=== PATIENT | male | born 1990 | race Caucasian/White ===

== ENCOUNTER 2020-07-07 12:04 | Outpatient (RCR) | payer OTHER, SELFPAY ==
[2016-01-29 18:23] VITALS: BMI 28.6
== END 2020-09-07 23:59 ==
LOC: IMMUN 12:04
PROVIDERS: PCP Internal Medicine; Referring Provider Family Medicine; Visit Provider Family Medicine
DX: Z23 Encounter for immunization (principal)
CPT/HCPCS: 0001A; 0002A; 91300

== ENCOUNTER 2023-03-01 13:19 | Observation (INO) | payer OTHER, SELFPAY ==
[2023-03-01] VITALS (7 sets, daily range): BP systolic 138–160; BP diastolic 88–106; PULSE 56–78; RESP 16–18; TEMP 36.2–37.1; O2SAT 94–100; BMI 30.2; BMI 31.1
--- NOTE | 2023-03-01 13:31 | CT_ITS ---
STUDY: CT ABDOMEN AND PELVIS WITH CONTRAST REASON FOR EXAM: Male, 32 years old. RLQ abd pain RADIATION DOSAGE (If Supplied By Facility): CTDIvol = ( 13.11 ) mGy, DLP = ( 576.74 ) mGycm TECHNIQUE: Transaxial images were obtained from the dome of the diaphragm to the symphysis pubis without oral contrast. IV 100mL Isovue-370 was administered. Sagittal and coronal images were reconstructed. Individualized dose optimization techniques were used for this CT. COMPARISON: None. FINDINGS: Mild degree of dependent bibasilar atelectasis. The visualized portions of the heart are within normal limits. Normal liver. Normal gallbladder and extrahepatic biliary system. Normal spleen. Normal pancreas. Normal bilateral adrenal glands. Normal right kidney. 2 mm nonobstructive calculus is seen in the lower pole calyx of the left kidney. There is a small hiatal hernia. Normal small intestine. Normal colon. There is a tubular, thick-walled appendix (>7mm), consistent with acute appendicitis. Inflammatory changes are seen in the right lower quadrant. Mesenteric lymph nodes are seen in the right lower quadrant. Normal abdominal aorta. Normal inferior vena cava. Normal retroperitoneum. Normal urinary bladder. Normal abdominal wall. Normal osseous structures. CT/Abdomen/Pelvis W IV Cont ONLY IMPRESSION: Findings in keeping with the acute appendicitis with inflammatory changes surrounding the appendix. N.B. : The above Results were Read Back by Nash Collins MD to Devin Raines MD, and understanding confirmed on 03/01/2023 14:52:23 (ET). Electronically Signed: Nash Collins MD at 14:53 EST ,
--- NOTE | 2023-03-01 13:32 | ED.VIS.GI ---
HPI HPI - GI History of Present Illness Chief Complaint: Abd Pain Detail of Chief Complaint: Right lower quadrant abdominal pain. Informant: patient Abdominal Pain/Flank Pain Onset: Today and Yesterday Context: Gradual Onset Timing: Continuous Quality: Aching Location: RLQ Current Severity: Moderate Maximum Severity: Moderate Worsened by: Car ride Relieved by: Nothing Nausea/Vomiting/Emesis GI Symptom: Negative for Nausea or Vomiting Diarrhea/Melena/Hematochezia GI Symptom: Negative for Diarrhea, Melena or Hematochezia Associated Symptoms Associated Symptoms: Negative for Dysuria, Frequency, Hematuria or Urgency Narrative Narrative: 32-year-old healthy male no significant past medical history or prior abdominal surgeries. Since last night around 630 he developed gradual onset of worsening right lower quadrant abdominal pain. Worse when you push on it. Denies fever. Denies nausea or vomiting. Denies chills. No dysuria. No prior history. Denies abdominal trauma. Prior similar symptoms: No Recent Illness/Hospitalization: No PFSH PFSH Medical History no medical history no medical history Home Medications No Known/Unobtainable [No Known Home Medications] 01/29/16 [History Last Taken Unknown] Allergy/AdvReac Type Severity Reaction Status Date / Time No Known Allergies Allergy Verified 03/01/23 13:19 Surgical History no surgical history no surgical history Social History Smoking Status: Never smoker ROS ROS ED ROS Narrative Right lower quadrant abdominal pain. Review of Systems ROS Unobtainable: Denies due to encephalopathy Constitutional Constitutional ED: Denies chills or fever(s) ENT ENT ED: Denies ear pain Cardiovascular Cardiovascular: Denies chest pain Respiratory/Chest Respiratory/Chest: Denies cough, dyspnea or dyspnea on exertion Gastrointestinal Gastrointestinal: Reports abdominal pain; Denies constipation, diarrhea, melena, nausea or vomiting Genitourinary Genitourinary ED: Denies dysuria or hematuria Musculoskeletal Musculoskeletal: Denies arthralgias or back pain Integumentary Denies abscess Neurologic Neurologic: Denies headache(s) Psychiatric Psychiatric: Denies anxiety Endocrine Endocrinology: Denies polydipsia Hematologic/Lymphatic Hematologic/Lymphatic: Denies easy bleeding Allergic/Immunologic Allergic/Immunologic ED: Denies mouth swelling, tongue swelling or urticaria EXAM Physical Exam Narrative Exam Narrative: 32-year-old male vital signs stable afebrile. No acute distress. H EENT exam unremarkable. Lungs clear to auscultation bilaterally. Heart regular rhythm rate about 80 no murmur. Chest wall nontender. Abdomen soft, nondistended normal bowel sounds. No hernia or mass. He is only tender in the right lower quadrant. Is exquisitely tender to palpation. The upper quadrant and left side of his abdomen is completely nontender. No distention. No hernia or mass. Back nontender. Moving all 4 extremities. Neurologically is awake and alert with no focal motor deficits. Const Vital Signs: 03/01/23 13:20 Temperature 98.8 F Temperature Source Temporal Pulse Rate 78 Respiratory Rate 18 Blood Pressure 138/93 H Blood Pressure Mean 108 Pulse Ox 100 Oxygen Delivery Method Room Air Positive well nourished and well developed; Negative for obese, cachectic or contractures General Appearance ED: well developed and NAD; Negative for cachectic, contractures or pallor Nutritional Appearance: Negative for cachectic or obese HEENT Reports moist mucous membranes normocephalic and atraumatic; Negative for trauma or tenderness Eyes PERRL and EOMs intact bilaterally General Eye ED: Negative for pale conjunctiva or scleral icterus Neck no lymphadenopathy, supple and no JVD General: Negative for tenderness Carotids: Negative for other Lymph Lymphatic: Negative for other Resp normal respiratory effort and clear to auscultation bilaterally Effort and Inspection: Negative for respiratory distress Auscultation: Negative for rales, rhonchi or wheezes Cardio regular rate, regular rhythm, S1 normal heart sound, S2 normal heart sound and no murmurs Rate: Negative for bradycardia or tachycardic Rhythm: Negative for abnormal rhythm GI non-distended and no masses; Negative for non-tender Inspection: Negative for abdominal distention Auscultation: normoactive bowel sounds Palpation: soft, tender, guarding and rebound tenderness present; Negative for rigid, hepatomegaly, splenomegaly, hernia, mass or pulsatile mass Back/Spine no CVA tenderness General Back: Negative for CVA tenderness Cervical Spine: Negative for cervical spine tenderness Thoracic Spine / Upper Back: Negative for thoracic spinal tenderness Lumbar Spine / Lower Back: Negative for lumbar spinal tenderness Coccyx: Negative for other Extremity full ROM General Extremety ED: Negative for edema or tenderness General Extremity: Negative for edema Neuro CN's II-XII intact bilaterally and moves all extremities Sensorium / Orientation: alert, oriented to person, oriented to place and oriented to time; Negative for orientation impaired, confused, lethargic or stuporous Motor Exam: strength 5/5 throughout Psych mental status grossly normal and thought process normal Appearance: Negative for other Attitude: No agitated Mood & Affect: Negative for depressed, anxious or tearful Skin no wounds General Skin Exam: Negative for jaundice or pallor Lesions: no lesions Rashes: no rashes Trauma: Negative for abrasion Nails: Negative for discolored MDM MDM MDM Narrative Medical decision making narrative: Healthy 32-year-old male with right lower quadrant abdominal pain. Exam is consistent with acute appendicitis. CAT scan and labs are pending. Currently he does not want anything for pain and denies any nausea. Repeat exam patient is doing well at 2:23 PM. No change in his abdominal exam. Clinically and by CAT scan this is acute appendicitis. IV Zosyn has been ordered. Dental surgery Dr. Leonard De Guzman is on page. Discussed the diagnosis with the patient and his via phone. Dr. De Guzman is aware we discussed the case and when he is finished with patients in his office will be in evaluate the patient taken to the OR. Patient's last meal was breakfast this morning. History & Record Review Discussion w/independent historian: Patient Lab Data Attestation: I reviewed the patient's lab results. Lab results narrative: White count 12.4. H&H 13 and 42. Platelets 288. CAT scan abdomen pelvis IV contrast I believe her to be acute appendicitis. Awaiting formal radiology interpretation. Labs: Laboratory Results - last 24 hr 03/01/23 13:59 WBC 12.4 H RBC 5.12 Hgb 13.4 Hct 42.1 MCV 82.2 MCH 26.2 L MCHC 31.8 L RDW Std Deviation 40.4 RDW Coeff of Emma 13.5 Plt Count 288 MPV 8.6 Immature Gran % (Auto) 0.300 Neut % (Auto) 71.7 H Lymph % (Auto) 16.4 L Eaton % (Auto) 9.2 Eos % (Auto) 1.8 Baso % (Auto) 0.6 Absolute Neuts (auto) 8.9 H Absolute Lymphs (auto) 2.03 Nucleated RBC % 0 Discharge Plan Triage Chief Complaint: Abd Pain ED Provider: Devin Raines Dx/Rx/DC Orders Clinical Impression: Abdominal pain, Acute appendicitis Prescriptions: No Action No Known Home Medications Primary Care Provider: Erwin Vidales Referrals: Erwin Vidales MD [Primary Care Provider] - Disposition Disposition: Acute Care Hospital [facility]
[2023-03-01 14:07] LABS: Absolute Lymphocyte Count 2.03 X10^3/uL (0.83-4.51); Absolute Neutrophil Count 8.9 X10^3/uL (2.0-7.7); Basophil# 0.07 X10^3/uL; Basophil% 0.6 % (0-1); Eosinophil# 0.22 X10^3/uL; Eosinophils% 1.8 % (0-5); Hematocrit 42.1 % (40-54); Hemoglobin 13.4 g/dL (13.0-16.5); Lymphocyte # 2.03 X10^3/ul (0.83-4.51); Lymphocyte % 16.4 % (19-41); Mean Corp Hgb Conc 31.8 g/dL (32-36); Mean Corpuscular Hgb 26.2 pg (27.0-32.0); Mean Corpuscular Volume 82.2 fL (80-94); Mean Platelet Vol. 8.6 fl (6.2-12.0); Monocyte# 1.14 X10^3/uL; Monocyte% 9.2 % (0-10); NRBC Flagged by Analyzer 0 % (0-5); Neutrophil # 8.85 X10^3/uL (2.7-7.7); Neutrophil % 71.7 % (47-70); Platelet Count 288 K/mm3 (150-450); RBC Distribution Width CV 13.5 % (11.6-14.6); RBC Distribution Width SD 40.4 fl (35.1-43.9); Red Blood Count 5.12 M/mm3 (4.6-6.2); White Blood Count 12.4 K/mm3 (4.4-11.0)
[2023-03-01 14:25] LABS: Anion Gap 3 (5-15); BUN 11 mg/dL (7-18); BUN/Creat Ratio 11.8 RATIO (10-20); Calcium,Total 9.1 mg/dL (8.5-10.1); Chloride 105 mmol/L (98-107); Creatinine, Serum 0.93 mg/dL (0.70-1.30); EST Glomerular Filtration Rate 99 mL/min (>60); Est Glom Filt Rate - Afr Amer 119 mL/min (>60); Estimated Creatinine Clearance 127.68 ml/min; Glucose 105 mg/dL (74-106); Potassium 3.7 mmol/L (3.5-5.1); Sodium Level 138 mmol/L (136-145)
--- NOTE | 2023-03-01 14:38 | NURSING ---
MED SURG OBS BORTZ APPENDICITIS
[2023-03-01] MEDS: HYDROmorphone 1 MG/ML Syringe IV (15:03)
[2023-03-01] MEDS: Ondansetron 4 MG/2 ML Vial IV (15:03)
[2023-03-01] MEDS: Piperacil/Tazobactam 4.5 GM in 0.9% Normal Saline (100mL MB+) 100 ML IV (15:04)
--- NOTE | 2023-03-01 18:02 | HP.PCM_ITS ---
HPI - General General Date of Service: 03/01/23 Chief Complaint: Acute onset right lower quadrant abdominal pain HPI Narrative CLINT MAHONEY, is a 32, otherwise healthy, M who presents to [facility] with complaints of progressive, acute?onset right lower quadrant abdominal pain that began approximately 1830 yesterday. He states that the pain is largely non-? migratory and describes it initially as a muscle cramp. He denies any associated nausea or vomiting. He has not experienced any change to his bowel habits. ED workup revealed mild leukocytosis at 12.[address] imaging of the abdomen pelvis was consistent with acute uncomplicated appendicitis. Patient's only prior procedural history consist of wisdom tooth extraction. [facility] Medical History no medical history Home Medications No Known/Unobtainable [No Known Home Medications] 01/29/16 [History Last Taken Unknown] Allergy/AdvReac Type Severity Reaction Status Date / Time No Known Allergies Allergy Verified 03/01/23 13:19 Surgical History no surgical history Social History Smoking Status: Never smoker ROS Constitutional Constitutional: Denies anorexia, change in weight or fever(s) Gastrointestinal Gastrointestinal: Reports abdominal pain; Denies constipation, diarrhea, nausea or vomiting Genitourinary Genitourinary: Denies dysuria Vital Signs Vital Signs Vital Signs: 03/01/23 13:20 03/01/23 17:02 03/01/23 15:19 Temperature 98.8 F Temperature Source Temporal Pulse Rate 78 71 72 Respiratory Rate 18 16 16 Blood Pressure 138/93 H 149/88 H 149/88 H Blood Pressure Mean 108 108 108 Blood Pressure Source Monitor Pulse Ox 100 98 97 Oxygen Delivery Method Room Air Room Air Room Air Weight Weight: 229 lb 1.6 oz Body Mass Index (BMI) 30.2 Physical Exam Const alert, oriented x3, no apparent distress and well nourished Resp normal respiratory effort GI GI Narrative: Hirsute, no scars, no visible herniation. Focal tenderness over McBurney's point. Negative Rovsing's, negative obturator sign. Positive psoas sign Results Lab / Micro Data 03/01/23 13:59 03/01/23 13:59 Labs: Laboratory Results - last 24 hr 03/01/23 13:59: WBC 12.4 H, RBC 5.12, Hgb 13.4, Hct 42.1, MCV 82.2, MCH 26.2 L, MCHC 31.8 L, RDW Std Deviation 40.4, RDW Coeff of Emma 13.5, Plt Count 288, MPV 8.6, Immature Gran % (Auto) 0.300, Neut % (Auto) 71.7 H, Lymph % (Auto) 16.4 L, Mchenry % (Auto) 9.2, Eos % (Auto) 1.8, Baso % (Auto) 0.6, Absolute Neuts (auto) 8.9 H, Absolute Lymphs (auto) 2.03, Nucleated RBC % 0, Sodium 138, Potassium 3.7, Chloride 105, Carbon Dioxide 30.0, Anion Gap 3 L, BUN 11, Creatinine 0.93, Estim Creat Clear Calc 127.68, Est GFR (MDRD) Af Amer 119, Est GFR (MDRD) Non-Af 99, BUN/Creatinine Ratio 11.8, Glucose 105, Calcium 9.1 Imagaing Radiology Impression Abdomen/Pelvis CT 03/01/23 13:31 IMPRESSION: Findings in keeping with the acute appendicitis with inflammatory changes surrounding the appendix. N.B. : The above Results were Read Back by Nash Collins MD to Devin Raines MD, and understanding confirmed on 03/01/2023 14:52:23 (ET). Electronically Signed: Nash Collins MD at 14:53 EST , ADDENDUM: 03/01/23 1500 IMPRESSION: Findings in keeping with the acute appendicitis with inflammatory changes surrounding the appendix. N.B. : The above Results were Read Back by Nash Collins MD to Devin Raines MD, and understanding confirmed on 03/01/2023 14:52:23 (ET). Electronically Signed: Nash Collins MD at 14:53 EST , Assessment & Plan Assessment/Plan (1) Acute appendicitis: PLAN: This is a 32-year-old, otherwise healthy male, who presents with signs and symptoms consistent with acute appendicitis. Management was discussed with patient and surgical appendectomy was recommended. Procedure details were discussed to include the possibility of outpatient disposition, however, I cautioned that given the late hour it may be best to proceed with an observational stay to further monitor patient and establish adequate pain control. He shares that while he is a new father as of this week, he is willing to proceed as recommended. He also provides his verbal consent to proceed as recommended regarding the operation. Emergency medicine has already dosed patient with piperacillin/tazobactam. Will proceed emergently for laparoscopic appendectomy at first availability of the operating room. Charges/Coding Visit Charges Inpatient E&M: 54358 Init Hosp L2
--- NOTE | 2023-03-01 18:15 | APP_PTH ---
PATIENT: CILNT MAHONEY LOC: MS3 U#:[id number] AGE/SX: 32/M ROOM: DC312 RE03/01/[address]: Dr. Leonard De Guzman MD : 1990 BED: 1 DIS: 03/02/2023 SPEC #: [id number] RECD: 03/02/23 08:20 STATUS: [place] #: [id number] TOM: 03/01/23 18:[address]: Leonard De Guzman DEPT: SURGICAL PATHOLOGY RECD BY: Piedad Mcgee ENTERED: 03/02/23 09:39 SP TYPE: APPENDIX OTHR DR: Dr. Erwin Vidales MD Tissues: Appendix, NOS Procedures: Surgery Specimen Level III HEADER OPERATION: Laparoscopic appendectomy PRE-OP DIAGNOSIS: Acute appendicitis TISSUE SUBMITTED: Appendix MICROSCOPIC DIAGNOSIS Appendix, appendectomy: Acute necrotizing appendicitis. Acute serositis. AM:kelly 03/05/2023 MICROSCOPIC DESCRIPTION Slides are reviewed. GROSS DESCRIPTION Received in fixative is one container labeled with the patient's name and designated appendix. The specimen consists of a vermiform appendix measuring 9.0 cm in length and 1.5 cm in average diameter. No gross perforations are evident. Serial sections do not reveal mass lesions. Classified Advertising Clerk sections are submitted in two cassettes. / AM:kelly 03/02/2023 TC:2 CPT: 21536
[2023-03-01] MEDS: Bupivacaine Mpf 0.5% 30 ML VIAL (22:00)
--- NOTE | 2023-03-01 22:04 | OP.PCM_ITS ---
Report of Operation Date of Procedure: 03/01/23 Pre-Operative Diagnosis: Acute appendicitis Post-Operative Diagnosis: Acute uncomplicated appendicitis Surgery/Procedure Performed:: Laparoscopic appendectomy Description of Surgical Findings:: Moderately inflamed appendix primarily from the midportion to the tip was relatively preserved base. No evidence of perforation Surgeon: Leonard De Guzman lean leader: None Type of Anesthesia: General/Supplemental Anesthesiologist: Monty Krishnamurthy Specimen's removed: Appendix Estimated Blood Loss (mL): 5 Description of Procedure: After appropriate identification in the preoperative holding area, the patient w as brought to the operating room and placed supine on the operating room table. Antibiotics had been preoperatively administered by emergency medicine. Patient was then induced with general endotracheal anesthetic. The abdomen was prepped and draped in usual sterile fashion. Formal timeout was conducted to confirm both the patient and the procedure. A supraumbilical incision was made and garcia ied down to the level of the fascia which was sharply opened. After opening the peritoneum in like fashion a finger sweep was made to confirm position, and a balloon trocar was placed and pneumoperitoneum was established to 15 mmHg. Patient was positioned in Trendelenburg with the left side down. 2 additional 5 mm trocars were placed in the left lower quadrant and suprapubic positions under laparoscopic visualization. The peritoneum was inspected and there were no signs of inadvertent injury from this Latif entry. The appendix was visualized with moderate inflammation. The appendix was partially surrounded in inflammatory adhesions from the surrounding mesoappendix and other local subcutaneous tissue and the base was not immediately visible. Therefore I opted to use the harmonic scalpel and some blunt dissection directly adjacent to the appendix to slowly divide the mesoappendix approaching the base. Ultimately I was able to see the full extent of the appendix as it originated from the coalescence of the tinea in the cecum. Using blunt laparoscopic dissection, a window was made in the mesoappendix adjacent to the appendiceal base. The remainder of the mesoappendix was divided with application of a laparoscopic harmonic. Then the base of the appendix was sealed and amputated with the use of an Endo GERTRUDE stapler. The appendix was placed in an Endo Catch bag. The stap le line was inspected for hemostasis which uncovered some evidence of a fresh clot but no active bleeding. On making this observation I used a [employer] sponge with a laparoscopic grasper to apply direct pressure for a period of 2 minutes. After this 2 minutes hemostasis was confirmed and the appendix was removed from the umbilical port site. Pneumoperitoneum was then evacuated and the supraumbil ical port site fascia was closed with #1 Vicryl in a [id number] fashion. The port sites were infiltrated with 15 mL local anesthetic. The skin of each port site was closed with 4-0 Monocryl in a subcuticular fashion. Steri-Strips and OpSite dressings were applied. Patient tolerated procedure well without any apparent complications. They were awoken from general anesthetic without issue and transferred to post anesthesia care unit for ongoing recovery. Complications None Admit VTE Documentation VTE Mechan Device Prophylaxis: SCD's Procedures Digestive 40xxx-49xxx: [id number] Laparoscopy appendectomy
[2023-03-01] MEDS: oxyCODONE 5 MG Tablet PO (23:19)
[2023-03-01] MEDS: Ibuprofen 400 MG Tablet PO (23:19)
[2023-03-01] MEDS: 0.9% Normal Saline (1000mL) 1,000 ML 125 ML IV (23:22)
[2023-03-02 01:10] VITALS: BP 113/63; PULSE 66; RESP 18; TEMP 36.8; O2SAT 98
[2023-03-02] MEDS: Acetaminophen 500 MG Tablet PO (02:19)
[2023-03-02 02:26] VITALS: BP 131/83; PULSE 56; RESP 16; TEMP 36.8; O2SAT 99
[2023-03-02] MEDS: Ibuprofen 400 MG Tablet PO (06:37)
[2023-03-02] MEDS: 0.9% Normal Saline (1000mL) 1,000 ML 125 ML IV (06:37)
[2023-03-02 06:40] VITALS: BP 122/72; PULSE 60; RESP 18; TEMP 37; O2SAT 98
--- NOTE | 2023-03-02 07:20 | DCINST_ITS ---
Discharge Instructions Diet Discharge Diet: No restrictions Activity Discharge Activity: May Not Drive (No driving while using narcotic pain medication) and May Shower (Postoperative day 2) May shower in (days): 1 Ice area for (Minutes): 20 Lifting Restrictions: No lifting greater than 15 pounds for 2 weeks after surgery Dressing / Incision Call your doctor if your incision/area has: Continuous Slow Oozing, Increased Pain/ Swelling, Increased Redness, Foul Smelling Discharge and Swelling at the incision site Call your doctor if you observe: Fever of 101 or Higher Remove Dressing in: 1 day (Please leave Steri-Strips intact until they fall off spontaneously or are taken off at your follow-up visit) Cleanse incision/area with: Soap & Water Follow Up Care Please Follow Up With: Leonard De Guzman MD When: 7-10days postop Test Results: Test results from this visit will be discussed in further detail at your follow- up appointment, if applicable. Discharge Plan Admission Admit Date/Time: 03/01/23 20:58 Primary Reason for Your Visit: Acute appendicitis Attending Provider: Leonard De Guzman Primary Care Provider: Erwin Vidales Discharge Orders/Prescriptions Prescriptions: New oxycodone 5 mg Tablet 5 mg PO Q6H PRN PRN (Reason: Pain Score 6-10) 3 Days Qty: 10 0RF No Action No Known Home Medications Referrals / Follow Up: Erwin Vidales MD [Primary Care Provider] - Disposition Disposition (needs filled in before D/C Order can be placed): Home, Self Care
--- NOTE | 2023-03-02 07:24 | PCM.DC.SUM ---
Providers Date of Admission: 03/01/23 Primary Care Physician: Dr. Erwin Vidales MD Reason For Visit: ACUTE APPENDICITIS Diagnosis Discharge Diagnosis (1) Acute appendicitis: Status: Acute Code(s): K35.80 - Unspecified acute appendicitis Plan: This is a 32-year-old, otherwise healthy male, who presents with signs and symptoms consistent with acute appendicitis. Management was discussed with patient and surgical appendectomy was recommended. Procedure details were discussed to include the possibility of outpatient disposition, however, I cautioned that given the late hour it may be best to proceed with an observational stay to further monitor patient and establish adequate pain control. He shares that while he is a new father as of this week, he is willing to proceed as recommended. He also provides his verbal consent to proceed as recommended regarding the operation. Emergency medicine has already dosed patient with piperacillin/tazobactam. Will proceed emergently for laparoscopic appendectomy at first availability of the operating room. Medications at Discharge Home Medications No Known/Unobtainable [No Known Home Medications] 01/29/16 oxycodone 5 mg tablet 5 mg PO Q6H PRN PRN Pain Score 6-10 3 days #10 tabs 03/02/23 Hospital Course Operations appendectomy Summary of Care Provided Hospital Course: Patient is a 32yo M who presented with signs and symptoms of acute appendicitis on 03/01/23. Given this diagnosis and his otherwise healthy status emergent laparoscopic appendectomy was recommended and undertaken the same day in an uncomplicated fashion. Uncomplicated appendicitis was found intraoperatively, however, due to the late hour of the case's conclusion I recommended overnight observation. Postoperative day 1 Mr. Fernandes reported minimal postoperative pain and tolerated advance to a regular diet without issue. Therefore, he was granted discharge to home after a review of postoperativ expectations including outpatient follow up. Physical Exam Resp normal respiratory effort GI GI Narrative: operative dressings are c/d/i, tenderness with palpation diffusely but rate 1/10 Weight / BMI Weight Weight: 236 lb Body Mass Index (BMI) 31.1 ABG / Lab / Microbiology Data 03/01/23 13:59 03/01/23 13:59 Laboratory: Laboratory Results - last 24 hr 03/01/23 13:59: WBC 12.4 H, RBC 5.12, Hgb 13.4, Hct 42.1, MCV 82.2, MCH 26.2 L, MCHC 31.8 L, RDW Std Deviation 40.4, RDW Coeff of Emma 13.5, Plt Count 288, MPV 8.6, Immature Gran % (Auto) 0.300, Neut % (Auto) 71.7 H, Lymph % (Auto) 16.4 L, [place] % (Auto) 9.2, Eos % (Auto) 1.8, Baso % (Auto) 0.6, Absolute Neuts (auto) 8.9 H, Absolute Lymphs (auto) 2.03, Nucleated RBC % 0, Sodium 138, Potassium 3.7, Chloride 105, Carbon Dioxide 30.0, Anion Gap 3 L, BUN 11, Creatinine 0.93, Estim Creat Clear Calc 127.68, Est GFR (MDRD) Af Amer 119, Est GFR (MDRD) Non-Af 99, BUN/Creatinine Ratio 11.8, Glucose 105, Calcium 9.1 Radiography Diagnostic Testing: Radiology Impression Abdomen/Pelvis CT 03/01/23 13:31 IMPRESSION: Findings in keeping with the acute appendicitis with inflammatory changes surrounding the appendix. N.B. : The above Results were Read Back by Nash Collins MD to Devin Raines MD, and understanding confirmed on 03/01/2023 14:52:23 (ET). Electronically Signed: Nash Collins MD at 14:53 EST , ADDENDUM: 03/01/23 1500 IMPRESSION: Findings in keeping with the acute appendicitis with inflammatory changes surrounding the appendix. N.B. : The above Results were Read Back by Nash Collins MD to Devin Raines MD, and understanding confirmed on 03/01/2023 14:52:23 (ET). Electronically Signed: Nash Collins MD at 14:53 EST , D/C Instructions Discharge Diet: No restrictions May shower in (days): 1 Ice area for (Minutes): 20 Call your doctor if your incision/area has: Continuous Slow Oozing, Increased Pain/ Swelling, Increased Redness, Foul Smelling Discharge and Swelling at the incision site Call your doctor if you observe: Fever of 101 or Higher Cleanse incision/area with: Soap & Water Please Follow Up With: Leonard De Guzman MD When: 7-10days postop Meaningful Use Info Meaningful Use Diagnoses (Choose all that apply): None applicable Discharge Plan Admission Admit Date/Time: 03/01/23 20:58 Primary Reason for Your Visit: Acute appendicitis Attending Provider: Leonard De Guzman Primary Care Provider: Erwin Vidales Discharge Orders/Prescriptions Prescriptions: New oxycodone 5 mg Tablet 5 mg PO Q6H PRN PRN (Reason: Pain Score 6-10) 3 Days Qty: 10 0RF No Action No Known Home Medications Referrals / Follow Up: Erwin Vidales MD [Primary Care Provider] - Disposition Disposition (needs filled in before D/C Order can be placed): Home, Self Care Charges/Coding Visit Charges Inpatient E&M: [id number] Disch Hosp
[2023-03-02] MEDS: oxyCODONE 5 MG Tablet PO (09:11)
[2023-03-02 09:15] VITALS: BP 127/85; PULSE 59; RESP 18; TEMP 36.6; O2SAT 99
--- NOTE | 2023-03-02 09:43 | PHA.DC.MC.R ---
Pharmacy [facility] has performed discharge medication reconciliation and counseling for this patient. The patient's discharge medication list was reviewed for discrepancies and discrepancies were resolved. The patient was counseled on the following discharge medications and changes in medications for homegoing were reviewed. The Reason for Use, instructions for use, and potential side effects were reviewed for all new medications. The patient's questions regarding all of their medications were answered. 1. Oxycodone 5 mg PO Q6H PRN pain The patient was able to verbally demonstrate an understanding of their discharge medications. Medications at Discharge Home Medications No Known/Unobtainable [No Known Home Medications] 01/29/16 oxycodone 5 mg tablet 5 mg PO Q6H PRN PRN Pain Score 6-10 3 days #10 tabs 03/02/23
== END 2023-03-02 11:03 | disposition home or self-care (01) ==
LOC: ED 14:30 → SDC 15:16 → ACINP 15:17 → MS3 03-02 07:24 → SDC 03-02 09:38
PROVIDERS: Admitting Provider Surgery; Emergency Provider Emergency Medicine; PCP Internal Medicine; Visit Provider Surgery
PROC: 0DTJ4ZZ Resection of Appendix, Percutaneous Endoscopic Approach (ICD-10-PCS; CPT 44970; principal; 2023-03-01 17:55)
DX: K35.80 Unspecified acute appendicitis (principal)
CPT/HCPCS: 44970; 00840; 74177; 80048; 85025; 88304; 96361; 96365; 96375; 99221; 99282; J7030; J7120; Q9967; A4216; G0378; J2405